=== PATIENT | female | born 1970 | race Caucasian/White ===

== ENCOUNTER 2020-11-28 18:52 | Inpatient (IN) | payer SELFPAY ==
[~2020-11-28] VITALS: Ht 180.3 cm; Wt 155.8 kg
[2020-11-28] MEDS ORDERED: SODIUM CHLORIDE 0.9% 500ML 500 ML IV STA (19:09)
[2020-11-28] MEDS ORDERED: DEXAMETHASONE SOD PHOS INJ 4 MG/ML VIAL IV ONE (19:15)
[2020-11-28] MEDS ORDERED: AZITHROMYCIN 500MG/NS 250 ML 250 ML IV ONE (19:15)
[2020-11-28] MEDS ORDERED: ACETAMINOPHEN 325 MG TAB PO PRN (19:30)
[2020-11-28] MEDS ORDERED: ACETAMINOPHEN 325 MG TAB ONE (19:42)
[2020-11-28] MEDS ORDERED: DEXAMETHASONE SOD PHOS INJ 4 MG/ML VIAL ONE (19:42)
[2020-11-28] MEDS ORDERED: AZITHROMYCIN 500MG/NS 250 ML 250 ML ONE (19:43)
[2020-11-28] MEDS ORDERED: SODIUM CHLORIDE 0.9% 500ML 500 ML ONE (19:43)
[2020-11-29] VITALS (9 sets, daily range): BP systolic 120–140; BP diastolic 63–84
[2020-11-29] MEDS: CEFTRIAXONE SOD 1 GRAM/0.9% SOD CHL 50ML BAG IV SCH ×2 (00:12→20:10)
[2020-11-29] MEDS ORDERED: CEFTRIAXONE SOD 1 GM/NS 50 ML 50 ML IV ONE (00:14)
[2020-11-29] MEDS: SODIUM CHLORIDE 0.9% 1000ML 1,000 ML IV SCH ×2 (01:20→10:08)
[2020-11-29] MEDS ORDERED: SYNTHROID125 MCG PO (02:44)
[2020-11-29] MEDS ORDERED: ASPIRIN81 MG (02:44)
[2020-11-29] MEDS ORDERED: OXYBUTYNIN CHLOR5 MG PO (02:44)
[2020-11-29] MEDS ORDERED: VYVANSE50 MG (02:44)
[2020-11-29] MEDS ORDERED: NEXIUM40 MG PO (02:44)
[2020-11-29 02:47] LABS: CREATINE KINASE 109 IU/L (29-168)
[2020-11-29 12:06] LABS: CREATINE KINASE MB 1.9 ng/mL (0-5.0)
[2020-11-29] MEDS ORDERED: ACETAMINOPHEN 325 MG TAB PO PRN (16:30)
[2020-11-29] MEDS: ENOXAPARIN SOD INJ 40 MG/0.4 ML SYR SC SCH (17:39)
[2020-11-29] MEDS ORDERED: REMDESIVIR 200MG/NS 100ML 200 MG in SODIUM CHLORIDE 0.9% 100 ML 100 ML IV ONE (18:00)
[2020-11-29 19:35] LABS: CREATINE KINASE MB 1.8 ng/mL (0-5.0)
[2020-11-29] MEDS ORDERED: SODIUM CHLORIDE 0.9% 250ML 250 ML ONE (20:07)
[2020-11-29] MEDS ORDERED: ZOLPIDEM TARTRATE 5 MG TAB PO PRN (21:00)
[2020-11-29] MEDS: AZITHROMYCIN 500MG/SOD CHL 0.9% 250ML BAG IV SCH (21:18)
[2020-11-29] MEDS ORDERED: GUAIFENESIN 200 MG/10 ML UDC PO PRN (22:15)
[2020-11-29] MEDS: GUAIFENESIN 200 MG/10 ML UDC PO PRN (23:47)
[2020-11-30] VITALS (8 sets, daily range): BP systolic 117–145; BP diastolic 75–86
[2020-11-30 04:55] LABS: BASOPHILS % 0.1 % (0.0-1.0); EOSINOPHILS % 0.1 % (0.0-6.0); HEMATOCRIT 37.4 % (34.2-44.1); LYMPHOCYTES # (AUTO) 1.3 (1.0-3.2); LYMPHOCYTES % 17.3 % (18.0-39.1); MEAN CORPUSCULAR HEMOGLOBIN 28.7 pg (28-32); MEAN CORPUSCULAR HGB CONC 32.1 g/dL (31-35); MEAN CORPUSCULAR VOLUME 89.5 fL (81-99); MONOCYTES # (AUTO) 0.7 (0.2-0.8); MONOCYTES % 8.9 % (4.4-11.3); NEUTROPHILS # (AUTO) 5.6 (2.1-6.9); NEUTROPHILS % 73.2 % (38.7-80.0); PLATELET COUNT 225 x10e3/uL (140-360); RED BLOOD COUNT 4.18 x10e6/uL (3.6-5.1); RED CELL DISTRIBUTION WIDTH 13.6 % (11.7-14.4)
[2020-11-30 05:18] LABS: ALANINE AMINOTRANSFERASE 13 IU/L (0-55); ALBUMIN 2.5 g/dL (3.5-5.0); ALBUMIN/GLOBULIN RATIO 0.7 (0.8-2.0); ALKALINE PHOSPHATASE 63 IU/L (40-150); ANION GAP 13.3 mmol/L (8-16); BLOOD UREA NITROGEN 9 mg/dL (7-26); BUN/CREATININE RATIO 13 (6-25); CARBON DIOXIDE 26 mmol/L (22-29); CHLORIDE 105 mmol/L (98-107); CREATININE, SERUM 0.71 mg/dL (0.57-1.11); EST GLOMERULAR FILTRATION RATE > 60 ML/MIN (60-); GLUCOSE 97 mg/dL (74-118); POTASSIUM 3.3 mmol/L (3.5-5.1); SODIUM 141 mmol/L (136-145)
[2020-11-30] MEDS: LEVOTHYROXINE SODIUM 125 MCG TAB PO SCH (06:07)
[2020-11-30] MEDS: DEXAMETHASONE SOD PHOS 10 MG/1 ML VIAL IV SCH (06:07)
[2020-11-30] MEDS: PANTOPRAZOLE SOD 40 MG TABEC PO SCH (08:30)
[2020-11-30] MEDS: GUAIFENESIN 200 MG/10 ML UDC PO PRN (08:42)
[2020-11-30] MEDS ORDERED: OXYBUTYNIN CHLORIDE 5 MG TAB PO SCH (09:00)
[2020-11-30] MEDS: ASPIRIN 81 MG CHEW TAB PO SCH (09:10)
[2020-11-30] MEDS: OXYBUTYNIN CHLORIDE XL 5 MG TAB PO SCH (09:10)
[2020-11-30] MEDS: REMDESIVIR 100MG/NS 100ML 100 MG IV SCH (13:25)
[2020-11-30] MEDS ORDERED: POTASSIUM CHLORIDE 10MEQ EA PO ONE (15:30)
[2020-11-30] MEDS: ENOXAPARIN SOD INJ 40 MG/0.4 ML SYR SC SCH (16:47)
[2020-11-30] MEDS: CEFTRIAXONE SOD 1 GRAM/0.9% SOD CHL 50ML BAG IV SCH (19:45)
[2020-11-30] MEDS: AZITHROMYCIN 500MG/SOD CHL 0.9% 250ML BAG IV SCH (20:50)
[2020-12-01] VITALS (9 sets, daily range): BP systolic 122–142; BP diastolic 65–89
[2020-12-01] MEDS: GUAIFENESIN 200 MG/10 ML UDC PO PRN (01:12)
[2020-12-01] MEDS: LEVOTHYROXINE SODIUM 125 MCG TAB PO SCH (06:15)
[2020-12-01] MEDS: DEXAMETHASONE SOD PHOS 10 MG/1 ML VIAL IV SCH (06:15)
[2020-12-01] MEDS: PANTOPRAZOLE SOD 40 MG TABEC PO SCH (08:35)
[2020-12-01] MEDS: OXYBUTYNIN CHLORIDE XL 5 MG TAB PO SCH (09:11)
[2020-12-01] MEDS: ASPIRIN 81 MG CHEW TAB PO SCH (09:11)
[2020-12-01] MEDS: ASCORBIC ACID 500 MG TAB PO SCH (11:47)
[2020-12-01] MEDS: ZINC SULFATE 50 MG CAP PO SCH (11:47)
[2020-12-01] MEDS: LORATADINE 10 MG TAB PO SCH (11:47)
[2020-12-01] MEDS: REMDESIVIR 100MG/NS 100ML 100 MG IV SCH (14:18)
[2020-12-01] MEDS: ENOXAPARIN SOD INJ 40 MG/0.4 ML SYR SC SCH (16:42)
[2020-12-01] MEDS: CEFTRIAXONE SOD 1 GRAM/0.9% SOD CHL 50ML BAG IV SCH (20:27)
[2020-12-01] MEDS: AZITHROMYCIN 500MG/SOD CHL 0.9% 250ML BAG IV SCH (21:07)
[2020-12-02] VITALS (7 sets, daily range): BP systolic 111–130; BP diastolic 84–94
[2020-12-02] MEDS: GUAIFENESIN 200 MG/10 ML UDC PO PRN ×2 (01:38→23:00)
[2020-12-02] MEDS: LEVOTHYROXINE SODIUM 125 MCG TAB PO SCH (05:31)
[2020-12-02] MEDS: DEXAMETHASONE SOD PHOS 10 MG/1 ML VIAL IV SCH (05:31)
[2020-12-02] MEDS: LORATADINE 10 MG TAB PO SCH (08:25)
[2020-12-02] MEDS: ASPIRIN 81 MG CHEW TAB PO SCH (08:25)
[2020-12-02] MEDS: OXYBUTYNIN CHLORIDE XL 5 MG TAB PO SCH (08:25)
[2020-12-02] MEDS: ASCORBIC ACID 500 MG TAB PO SCH (08:25)
[2020-12-02] MEDS: PANTOPRAZOLE SOD 40 MG TABEC PO SCH (08:25)
[2020-12-02] MEDS: ZINC SULFATE 50 MG CAP PO SCH (08:26)
[2020-12-02] MEDS: REMDESIVIR 100MG/NS 100ML 100 MG IV SCH (13:33)
[2020-12-02] MEDS: ENOXAPARIN SOD INJ 40 MG/0.4 ML SYR SC SCH (16:52)
[2020-12-02] MEDS: CEFTRIAXONE SOD 1 GRAM/0.9% SOD CHL 50ML BAG IV SCH (20:41)
[2020-12-02] MEDS: AZITHROMYCIN 500MG/SOD CHL 0.9% 250ML BAG IV SCH (21:14)
[2020-12-03 00:55] VITALS: BP 132/95
[2020-12-03 04:00] VITALS: BP 138/80
[2020-12-03] MEDS: DEXAMETHASONE SOD PHOS 10 MG/1 ML VIAL IV SCH (05:47)
[2020-12-03] MEDS: LEVOTHYROXINE SODIUM 125 MCG TAB PO SCH (05:47)
[2020-12-03 06:27] LABS: BASOPHILS % 0.4 % (0.0-1.0); EOSINOPHILS # (AUTO) 0.1 (0.0-0.4); HEMOGLOBIN 11.7 g/dL (12.0-16.0); LYMPHOCYTES # (AUTO) 2.3 (1.0-3.2); LYMPHOCYTES % 29.8 % (18.0-39.1); MEAN CORPUSCULAR HEMOGLOBIN 28.3 pg (28-32); MEAN CORPUSCULAR HGB CONC 32.5 g/dL (31-35); MEAN CORPUSCULAR VOLUME 87.2 fL (81-99); MONOCYTES # (AUTO) 0.8 (0.2-0.8); MONOCYTES % 10.2 % (4.4-11.3); NEUTROPHILS # (AUTO) 4.4 (2.1-6.9); NEUTROPHILS % 57.8 % (38.7-80.0); PLATELET COUNT 336 x10e3/uL (140-360); RED BLOOD COUNT 4.13 x10e6/uL (3.6-5.1); RED CELL DISTRIBUTION WIDTH 13.6 % (11.7-14.4)
[2020-12-03 06:58] LABS: ALANINE AMINOTRANSFERASE 22 IU/L (0-55); ALBUMIN 2.6 g/dL (3.5-5.0); ALBUMIN/GLOBULIN RATIO 0.8 (0.8-2.0); ALKALINE PHOSPHATASE 59 IU/L (40-150); ANION GAP 9.6 mmol/L (8-16); BLOOD UREA NITROGEN 13 mg/dL (7-26); BUN/CREATININE RATIO 18 (6-25); CARBON DIOXIDE 28 mmol/L (22-29); CHLORIDE 104 mmol/L (98-107); CREATININE, SERUM 0.71 mg/dL (0.57-1.11); EST GLOMERULAR FILTRATION RATE > 60 ML/MIN (60-); GLUCOSE 88 mg/dL (74-118); POTASSIUM 3.6 mmol/L (3.5-5.1); SODIUM 138 mmol/L (136-145)
[2020-12-03] MEDS: PANTOPRAZOLE SOD 40 MG TABEC PO SCH (07:48)
[2020-12-03] MEDS: LORATADINE 10 MG TAB PO SCH (07:48)
[2020-12-03] MEDS: OXYBUTYNIN CHLORIDE XL 5 MG TAB PO SCH (07:48)
[2020-12-03] MEDS: ASPIRIN 81 MG CHEW TAB PO SCH (07:48)
[2020-12-03] MEDS: ASCORBIC ACID 500 MG TAB PO SCH (07:49)
[2020-12-03] MEDS: ZINC SULFATE 50 MG CAP PO SCH (07:49)
[2020-12-03 08:00] VITALS: BP 140/99
[2020-12-03 09:00] VITALS: BP 140/99
[2020-12-03 11:28] VITALS: BP 121/73
[2020-12-03] MEDS: REMDESIVIR 100MG/NS 100ML 100 MG IV SCH (15:12)
[2020-12-03] MEDS ORDERED: FLUCONAZOLE 100 MG TAB PO NR (15:45)
[2020-12-03] MEDS ORDERED: DECADRON6 MG PO (15:48)
[2020-12-03 15:49] VITALS: BP 133/81
[2020-12-03] MEDS ORDERED: DIFLUCAN150 MG PO (15:49)
[2020-12-03] MEDS: ENOXAPARIN SOD INJ 40 MG/0.4 ML SYR SC SCH (16:59)
== END 2020-12-03 17:45 | disposition home or self-care (01) | DRG 177 ==
LOC: FSED 19:30 → ERHOLD 19:31 → IMCU 11-29 00:31 → OBSVTOIN 11-29 07:50
PROVIDERS: ADMIT Internal Medicine; ATTEND Internal Medicine
PROC: XW033E5 Introduction of Remdesivir Anti-infective into Peripheral Vein, Percutaneous Approach, New Technology Group 5 (ICD-10-PCS; principal; 2020-11-29)
PROC: 8E0ZXY6 Isolation (ICD-10-PCS; 2020-11-29)
DX: U07.1 COVID-19 (principal); J12.82 Pneumonia due to coronavirus disease 2019; Z68.42 Body mass index [BMI] 45.0-49.9, adult; N32.81 Overactive bladder; K21.9 Gastro-esophageal reflux disease without esophagitis; E66.01 Morbid (severe) obesity due to excess calories; E03.9 Hypothyroidism, unspecified; G47.33 Obstructive sleep apnea (adult) (pediatric); E87.6 Hypokalemia
CPT/HCPCS: 36415; 71046; 80053; 82550; 82553; 82948; 83880; 84443; 84484; 85025; 85379; 96374; 99284; G0378; J0456; J0696; J1100; J1650; J7030; J7040; J7050; U0002